=== PATIENT | female | born 1990 | race Caucasian/White ===

== ENCOUNTER 2023-10-26 10:48 | Outpatient (CLI) | payer MEDICARE, MEDICAID, SELFPAY ==
--- NOTE | 2023-10-26 11:53 | W.ANESCHARGE ---
Anesthesia Charges Start Date/Time Anesthesia Start Date: 10/26/23 Anesthesia Start Time: 12:05 Stop Date/Time Anesthesia Stop Date: 10/26/23 Anesthesia Stop Time: 12:25
--- NOTE | 2023-10-26 12:27 | W.ANESCHARGE ---
Anesthesia Charges Start Date/Time Anesthesia Start Date: 10/26/23 Anesthesia Start Time: 12:05 Stop Date/Time Anesthesia Stop Date: 10/26/23 Anesthesia Stop Time: 12:25
== END 2023-10-26 10:49 | disposition home or self-care (01) ==
LOC: OP CLINIC 10:49
PROVIDERS: PCP Physician Assistant Medical; Visit Provider Surgery
DX: R19.8 Other specified symptoms and signs involving the digestive system and abdomen (principal); K31.7 Polyp of stomach and duodenum
CPT/HCPCS: 43239; 731; 88305; J2704